=== PATIENT | male | born 1965 | race Caucasian/White ===

== ENCOUNTER → 2016-04-22 | Outpatient (CLI) | payer OTHER ==
[2016-04-22 11:54] LABS: BASOPHILS # (AUTO) 0.05 10*3/UL; BASOPHILS % (AUTO) 0.4 % (0-1); EOSINOPHILS % (AUTO) 6.3 % (0-8); HEMOGLOBIN 16.4 g/dL (14.0-18.0); IMM GRAN % (AUTO) 0.3 % (0-5); IMM GRAN# (AUTO) 0.03 10*3/UL; LYMPHOCYTES # (AUTO) 3.22 10*3/uL; LYMPHOCYTES % (AUTO) 26.9 % (10-50); MEAN CORPUSCULAR HEMOGLOBIN 31.5 PG (27-31); MEAN CORPUSCULAR HGB CONC 34.2 g/dL (33-37); MEAN PLATELET VOLUME 10.1 FL (7.4-12.2); MONOCYTES # (AUTO) 0.89 10*3/UL (0.3-0.8); MONOCYTES % (AUTO) 7.4 % (5-15); NEUTROPHILS # (AUTO) 7.01 10*3/UL; NEUTROPHILS % (AUTO) 58.7 % (50-80); PLATELET MORPHOLOGY COMMENT NORMAL MORPHOLOGY (NORM); WHITE BLOOD COUNT 11.95 10^3/uL (4.8-10.8)
[2016-04-22 12:06] LABS: HEMOGLOBIN A1C 6.24 % (4.2-6.0); MEAN BLOOD GLUCOSE (CALC) 121.792 mg/dL
[2016-04-22 12:20] LABS: ASPARTATE AMINO TRANSFERASE 17 IU/L (21-57); BILIRUBIN,TOTAL 0.4 mg/dL (0.3-1.2); BLOOD UREA NITROGEN 14 mg/dL (7-22); CALCIUM 10.3 mg/dL (8.7-10.7); CHLORIDE 95 meq/L (98-112); CREATININE 0.8 mg/dL (0.70-1.50); EST GLOMERULAR FILTRATION > 60 (>60 ml/min/1.73m(2)); GLUCOSE 97 mg/dL (78-110); HDL CHOLESTEROL 41 mg/dL (40-150); POTASSIUM 4.3 meq/L (3.8-5.2); SODIUM 135 meq/L (135-145); TOTAL PROTEIN 7.6 g/dL (6.1-8.0); TRIGLYCERIDES 188 mg/dL (44-200)
[2016-04-22 12:37] LABS: FREE T4 (FREE THYROXINE) 1.2 ng/dL (0.93-1.71)
== END ==
LOC: LAB 11:39
DX: F31.81 Bipolar II disorder (principal); F10.20 Alcohol dependence, uncomplicated; Z79.899 Other long term (current) drug therapy
CPT/HCPCS: 36415; 80053; 80061; 82306; 82607; 82746; 83036; 84439; 84443; 85025

== ENCOUNTER → 2016-05-26 | Outpatient (CLI) | payer OTHER ==
--- NOTE | 2016-05-26 09:41 | EKG ---
[address] [address] Measurements Intervals [place] Rate: 88 P: 62 NE: 164 QRS: -56 QRSD: 89 T: 35 QT: 355 QTc: 401 Interpretive Statements SINUS RHYTHM MARKED LEFT AXIS DEVIATION No previous ECG available for comparison Electronically Signed On 05-26-16 13:05:15 MDT by Matthew Morrison [email or web address]
== END ==
LOC: EKG 09:14
PROVIDERS: ATTEND Family Medicine
DX: R07.9 Chest pain, unspecified (principal)
CPT/HCPCS: 93005; 93010

== ENCOUNTER → 2016-06-23 | Outpatient (CLI) | payer OTHER ==
--- NOTE | 2016-06-23 09:12 | STRESSTEST ---
[facility] [place] Interpretive Statements This 51 y.o. male is referred by Dr. Sanchez for recent episodes of chest pressure with left arm ache and palpitations or heart rate increase. Risk factors, include Family Hx (father with CABG), smoking, and hypertension. He was able to reach 95% PMHR and 7.1 METs without any significant ectopy or ST changes. He maintained O2 sats >90% and he had no symptoms at exercise or rest phase. B/P response was normal and well controlled. IMPRESSION: Low risk maximal stress test. PLAN: smoking cessation encouraged and suggested repeat this test in 3 to 5 years or if symptoms not resolving. [id number]
== END ==
LOC: RT 08:01
PROVIDERS: ATTEND Family Medicine
DX: R07.9 Chest pain, unspecified (principal); I10 Essential (primary) hypertension; R00.2 Palpitations; F17.200 Nicotine dependence, unspecified, uncomplicated; Z82.49 Family history of ischemic heart disease and other diseases of the circulatory system
CPT/HCPCS: 93016; 93017; 93018

== ENCOUNTER → 2016-08-10 | Outpatient (CLI) | payer OTHER | LOC: LAB 07:47 | PROVIDERS: ATTEND Family Medicine | DX: E66.9 Obesity, unspecified (principal); Z83.3 Family history of diabetes mellitus; Z13.1 Encounter for screening for diabetes mellitus | CPT/HCPCS: 36415; 82947 ==